=== PATIENT | female | born 1945 | race Caucasian/White ===

== ENCOUNTER → 2020-02-02 | Outpatient (CLI) | payer MEDICARE ==
[~2020-02-02] MED LIST: AMLO-150 PO; CHOL10003 PO; FLUO20TA25 PO; HYDR12.517 PO; PANT40TA6 PO; VIT1CAPS42 PO
[2020-02-02 15:28] LABS: BASOPHILS # (AUTO) 0.02 x10^3/uL (0-0.1); BASOPHILS % (AUTO) 0 % (0-1); EOSINOPHILS % (AUTO) 5 % (1-7); LYMPHOCYTES # (AUTO) 1.48 x10^3/uL (1-3.4); LYMPHOCYTES % (AUTO) 23 % (22-44); MD NO; MEAN CORPUSCULAR HEMOGLOBIN 29.6 pg (27.0-34.8); MEAN CORPUSCULAR HGB CONC 33.9 g/dL (32.4-35.8); MEAN CORPUSCULAR VOLUME 87.3 fL (80-100); MEAN PLATELET VOLUME 8.7 fL (7.4-10.4); MONOCYTES # (AUTO) 0.43 x10^3/uL (0.2-0.8); MONOCYTES % (AUTO) 7 % (2-9); NEUTROPHILS # (AUTO) 4.12 x10^3/uL (1.8-6.8); NEUTROPHILS % (AUTO) 65 % (42-75); PLATELET COUNT 307 x10^3/uL (130-400); RED BLOOD COUNT 4.87 x10^6/uL (3.82-5.3)
[2020-02-02 15:40] LABS: ALANINE AMINOTRANSFERASE 40 U/L (12-78); ALBUMIN 3.9 g/dL (3.4-5.0); ANION GAP 8 mmol/L (5-15); CHLORIDE 108 mmol/L (98-107)
[2020-02-02 15:43] LABS: ALKALINE PHOSPHATASE 90 U/L (45-117); BILIRUBIN,TOTAL 0.3 mg/dL (0.2-1.0); CREATININE 1.04 mg/dL (0.55-1.02); TOTAL PROTEIN 7.3 g/dL (6.4-8.2)
== END | disposition home or self-care (01) ==
LOC: STAR 13:59
PROVIDERS: ATTEND Internal Medicine
DX: Z01.818 Encounter for other preprocedural examination (principal); K63.5 Polyp of colon; R00.0 Tachycardia, unspecified; I25.2 Old myocardial infarction
CPT/HCPCS: 36415; 80053; 85025; 93005

== ENCOUNTER → 2020-02-04 | Outpatient (CLI) | payer MEDICARE ==
[~2020-02-04] MED LIST changes: +BACTRIM
== END | disposition home or self-care (01) ==
LOC: STAR 11:27
PROVIDERS: ATTEND Anesthesiology
DX: Z01.812 Encounter for preprocedural laboratory examination (principal); Z20.828 Contact with and (suspected) exposure to other viral communicable diseases
CPT/HCPCS: 36415; 87635

== ENCOUNTER 2020-02-08 11:37 | Day surgery (SDC) | payer MEDICARE ==
[~2020-02-08] VITALS: Ht 160 cm; Wt 84.1 kg
[~2020-02-08 11:37] MED LIST changes: -BACTRIM
[2020-02-08] MEDS ORDERED: LACTATED RINGERS 1,000 ML IV SCH (11:56)
[2020-02-08] MEDS ORDERED: BACTRIM (11:58)
[2020-02-08] MEDS ORDERED: CHLORHEXIDINE 15 ML UDC MM ONE (12:00)
[2020-02-08] MEDS ORDERED: PROPOFOL 10 MG/ML, 20ML ONE ×3 (13:04→13:31)
== END 2020-02-08 15:00 | disposition home or self-care (01) ==
LOC: OUT 11:37
PROVIDERS: ATTEND Internal Medicine
DX: R19.7 Diarrhea, unspecified (principal); D12.3 Benign neoplasm of transverse colon; D12.2 Benign neoplasm of ascending colon; K57.30 Diverticulosis of large intestine without perforation or abscess without bleeding; K63.89 Other specified diseases of intestine; I10 Essential (primary) hypertension; G47.33 Obstructive sleep apnea (adult) (pediatric); Z86.010 Personal history of colon polyps; Z90.49 Acquired absence of other specified parts of digestive tract; Z90.710 Acquired absence of both cervix and uterus; Z98.890 Other specified postprocedural states; Z72.89 Other problems related to lifestyle; Z79.899 Other long term (current) drug therapy; Z82.49 Family history of ischemic heart disease and other diseases of the circulatory system
CPT/HCPCS: 45380; 45385; 88305; A4648; J2704; J7120